=== PATIENT | female | born 1975 | race African-American/Black ===

== ENCOUNTER 2017-08-15 11:42 | Emergency (ER) | payer OTHER ==
[~2017-08-15 11:42] MED LIST: DIAZ5 PO; LEVO.15 PO
[2017-08-15 11:46] VITALS: BP 130/72; PULSE 96; RESP 16; TEMP 97.9; O2SAT 98
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
== END 2017-08-15 13:40 | disposition home or self-care (01) ==
LOC: NEPK 11:42
DX: S40.022A Contusion of left upper arm, initial encounter (principal); S80.11XA Contusion of right lower leg, initial encounter; V09.09XA Pedestrian injured in nontraffic accident involving other motor vehicles, initial encounter; Y92.008 Other place in unspecified non-institutional (private) residence as the place of occurrence of the external cause
CPT/HCPCS: 99282